=== PATIENT | female | born 1975 | race American Indian/Alaskan Native ===

== ENCOUNTER 2016-09-27 14:38 | Emergency (ER) | payer OTHER ==
[2016-09-27 14:52] VITALS: TEMP 98
[2016-09-27] MEDS ORDERED: Oxycodone/Acetaminophen 5/325 mg Tab PO STA (15:43)
--- NOTE | 2016-09-27 16:48 | RAD ---
PROCEDURE: Right Ankle Radiographs. HISTORY: ankle pain s/p fall COMPARISON: None FINDINGS: BONES: Normal. No fracture. JOINTS: Normal. No osteoarthritis. Ankle mortise maintained. Talar dome intact SOFT TISSUES: Normal. OTHER FINDINGS: None. IMPRESSION: Normal right ankle radiographs.
--- NOTE | 2016-09-27 16:49 | RAD ---
PROCEDURE: Radiographs of the Lumbar Spine. HISTORY: back pain/fall COMPARISON: No prior. FINDINGS: BONES: Normal alignment. No listhesis. No fracture. DISC SPACES: Unremarkable. OTHER FINDINGS: None. IMPRESSION: Unremarkable radiographs of the lumbar spine.
[2016-09-27 17:01] VITALS: BP 129/79; PULSE 62; RESP 16
--- NOTE | 2016-09-27 17:58 | ED PDOC ---
Arrival/HPI - General Chief Complaint: Trauma Time Seen by Provider: 09/27/16 15:38 Historian: Patient - History of Present Illness Narrative History of Present Illness (Text): 09/27/16 18:16 41-year-old female presents today with back pain and right ankle pain s/p slip and fall. pt states while shopping she slipped on water and fell on buttock and left side. pt denies hitting her head. no LOC. no headaches, dizziness or weakness. no cp or sob. no vomiting/diarrhea. c/o low back pain and right ankle pain after twisting ankle. no cp or sob. no mediations taken for pain. incident occurred prior to arrival. Time/Duration: Prior to Arrival Past Medical History - Provider Review Nursing Documentation Reviewed: Yes - Travel History Have you recently traveled outside [place] w/in the past 3 mons?: No - Infectious Disease Hx of Infectious Diseases: None - Reproductive Menopause: No - Cardiac Hx Hypertension: Yes - Pulmonary Hx Asthma: Yes - Musculoskeletal/Rheumatological Hx Back Pain: Yes (slipped disc) - Psychiatric Hx Substance Use: No - Anesthesia Hx Anesthesia: No Family/Social History - Physician Review Nursing Documentation Reviewed: Yes Family/Social History: Unknown Family HX Smoking Status: Unknown If Ever Smoked Hx Alcohol Use: No Hx Substance Use: No Allergies/Home Meds Allergies/Adverse Reactions: Allergies No Known Allergies Allergy (Verified 09/27/16 15:09) Home Medications: Home Meds Medication Instructions Recorded Confirmed Lisinopril [Prinivil] 10 mg PO DAILY 09/27/16 09/27/16 Review of Systems - Review of Systems Constitutional: absent: Fatigue, Fevers Respiratory: absent: SOB, Cough Cardiovascular: absent: Chest Pain, Palpitations Gastrointestinal: absent: Abdominal Pain, Nausea, Vomiting Genitourinary Female: absent: Dysuria Musculoskeletal: Arthralgias (right ankle pain), Back Pain. absent: Neck Pain Skin: absent: Rash, Pruritis Physical Exam Vital Signs Reviewed: Yes Vital Signs Temp Pulse Resp BP Pulse Ox 09/27/16 17:00 62 16 129/79 100 09/27/16 14:51 98.0 F 66 18 159/103 H 99 Temperature: Afebrile Blood Pressure: Hypertensive Pulse: Regular Respiratory Rate: Normal Appearance: Positive for: Well-Appearing, Non-Toxic, Comfortable Pain Distress: None Mental Status: Positive for: Alert and Oriented X 3 - Systems Exam Head: Present: Atraumatic Mouth: Present: Moist Mucous Membranes Neck: Present: Normal Range of Motion Respiratory/Chest: Present: Clear to Auscultation, Good Air Exchange. No: Respiratory Distress, Accessory Muscle Use Cardiovascular: Present: Regular Rate and Rhythm, Normal S1, S2. No: Murmurs Abdomen: No: Tenderness, Distention, Rebound, Guarding Back: Present: Normal Inspection, Paraspinal Tenderness. No: Midline Tenderness Upper Extremity: Present: Normal Inspection, Normal ROM. No: Tenderness, Swelling Lower Extremity: Present: Normal ROM, Tenderness (right ankle; + ttp over lateral malleolus; no edema, no erythema; no ecchymosis; sensation and distal pulses intact; no knee tenderness. pelvis stable; full rom of ankle and knee. ) , Neurovascularly Intact, Capillary Refill < 2 s. No: Swelling, Erythema, Deformity, Temperature Abnormalties Skin: Present: Warm, Dry, Normal Color. No: Rashes Psychiatric: Present: Alert, Oriented x 3 Medical Decision Making ED Course and Treatment: 09/27/16 19:48 Patient nontoxic well-appearing in no distress with stable vital signs. Toradol, Flexeril, Percocet. Right ankle x-ray: No fracture as read by the radiologist X-ray of the lumbar spine: No fractures read by the radiologist Patient reassessment: Feeling better with medications ambulating with a steady gait. Muscle strength 5 out of 5 bilaterally. Aircast to right ankle and crutches given I advised to followup with the orthopedist within the next 2 days.Advised follow -up PMD Return if symptoms worsen persist or new symptoms develop Patient verbalizes understanding of discharge instructions and need for immediate followup. Impression: Back pain, ankle pain Motrin every 6 hours as needed for pain Flexeril one tablet every 8 hours as needed for muscle spasms: May cause drowsiness Followup with the orthopedist within the next 2 days Followup with primary care physician within the next 2 days Return if symptoms worsen persist or if new symptoms develop - RAD Interpretation Radiology Orders: 09/27/16 15:38 ANKLE RIGHT 3 VIEWS ROUTINE [RAD] Stat LS SPINE WITH OBL > 18 YRS OLD [RAD] Stat - Medication Orders Current Medication Orders: Discontinued Medications Cyclobenzaprine HCl (Flexeril) 10 mg PO STAT STA Stop: 09/27/16 15:44 Last Admin: 09/27/16 16:40 Dose: 10 mg Ketorolac Tromethamine (Toradol) 60 mg IM STAT STA Stop: 09/27/16 15:44 Last Admin: 09/27/16 16:41 Dose: Not Given Non-Admin Reason: Patient Refused Oxycodone/Acetaminophen (Percocet 5/325 Mg Tab) 1 tab PO STAT STA Stop: 09/27/16 15:44 Last Admin: 09/27/16 16:40 Dose: 1 tab Disposition/Present on Arrival - Present on Arrival Any Indicators Present on Arrival: No History of DVT/PE: No History of Uncontrolled Diabetes: No Urinary Catheter: No History of Decub. Ulcer: No History Surgical Site Infection Following: None - Disposition Have Diagnosis and Disposition been Completed?: Yes Diagnosis: Ankle pain, Back pain Disposition: HOME/ ROUTINE Disposition Time: 17:55 Patient Plan: Discharge Condition: GOOD Discharge Instructions (ExitCare): Back Pain (ED), Arthralgia (ED) Additional Instructions: Motrin every 6 hours as needed for pain Flexeril one tablet every 8 hours as needed for muscle spasms: May cause drowsiness rest, ice, elevation Followup with the orthopedist within the next 2 days Followup with primary care physician within the next 2 days Return if symptoms worsen persist or if new symptoms develop Prescriptions: Cyclobenzaprine [Cyclobenzaprine HCl] 10 mg PO Q8 #10 tab Ibuprofen [Motrin] 600 mg PO Q6H PRN #20 tab PRN Reason: pain/fever reduction Referrals: Munira Magallon MD [Primary Care Provider] - Follow up with primary Manuel Burr MD [Staff Provider] - Follow up with primary Forms: [employer] ([place]ian), WORK NOTE
[2016-09-27 18:22] VITALS: O2SAT 98
== END 2016-09-27 18:22 | disposition home or self-care (01) ==
LOC: ED 14:38
DX: M25.571 Pain in right ankle and joints of right foot (principal); M54.9 Dorsalgia, unspecified

== ENCOUNTER 2017-04-28 13:17 | Emergency (ER) | payer OTHER ==
--- NOTE | 2017-04-28 14:14 | ED PDOC ---
Arrival/HPI - General Chief Complaint: Dental Pain Time Seen by Provider: 04/28/17 14:13 Historian: Patient - History of Present Illness Narrative History of Present Illness (Text): 04/28/17 14:14 This 41 yo female with pmh htn, dental caries, presents to this ED c/o right tooth/gum pain x 2 days. Patient stated she was not able to see her dentist due to severe now weather today. Patient stated she has an appointment to see her dentist tomorrow. Patient denies fever, sob, cp, abdominal pain, JEREZ, facial swelling, facial pain, recent travel or sick contact. Time/Duration: Other (2 days) Quality: Aching Context: Home Past Medical History - Provider Review Nursing Documentation Reviewed: Yes - Infectious Disease Hx of Infectious Diseases: None - Cardiac Hx Cardiac Disorders: Yes Hx Hypertension: Yes - Pulmonary Hx Respiratory Disorders: Yes Hx Asthma: Yes - Neurological Hx Neurological Disorder: No - HEENT Hx HEENT Disorder: No - Renal Hx Renal Disorder: No - Endocrine/Metabolic Hx Endocrine Disorders: No - Hematological/Oncological Hx Blood Disorders: No - Integumentary Hx Dermatological Disorder: No - Musculoskeletal/Rheumatological Hx Musculoskeletal Disorders: Yes Hx Back Pain: Yes (slipped disc) Other/Comment: R ANKLE INJURY - Gastrointestinal Hx Gastrointestinal Disorders: No - Genitourinary/Gynecological Hx Genitourinary Disorders: No - Psychiatric Hx Psychophysiologic Disorder: No Hx Substance Use: No - Surgical History Other/Comment: UTERINE SURGERY - Anesthesia Hx Anesthesia: No Family/Social History - Physician Review Nursing Documentation Reviewed: Yes Family/Social History: Other (noncontributory) Smoking Status: Never Smoked Hx Alcohol Use: No Hx Substance Use: No Allergies/Home Meds Allergies/Adverse Reactions: Allergies No Known Allergies Allergy (Verified 04/28/17 13:44) Home Medications: Home Meds Medication Instructions Recorded Confirmed Lisinopril [Prinivil] 20 mg PO DAILY 09/27/16 04/28/17 Review of Systems - Review of Systems Constitutional: Normal. absent: Fatigue, Weight Change, Fevers Eyes: Normal ENT: Other (tooth ache). absent: Sore Throat Respiratory: Normal, Cough. absent: SOB, Sputum, Wheezing Cardiovascular: Normal. absent: Chest Pain, Palpitations Gastrointestinal: Normal. absent: Abdominal Pain, Diarrhea, Nausea, Vomiting Genitourinary Female: Normal. absent: Dysuria, Frequency, Hematuria Musculoskeletal: Normal. absent: Back Pain, Neck Pain, Myalgias Skin: Normal. absent: Rash Neurological: Normal. absent: Headache, Dizziness, Focal Weakness, Gait Changes , Speech Changes, Facial Droop, Disequilibrium, Seizure Endocrine: Normal Hemo/Lymphatic: Normal Psychiatric: Normal Physical Exam Vital Signs Temp Pulse Resp BP Pulse Ox 04/28/17 13:45 99.0 F 100 H 16 169/116 H 99 Temperature: Afebrile Blood Pressure: Hypertensive Pulse: Regular Respiratory Rate: Normal Appearance: Positive for: Well-Appearing, Non-Toxic, Comfortable Pain Distress: None Mental Status: Positive for: Alert and Oriented X 3 - Systems Exam Head: Present: Atraumatic, Normocephalic Pupils: Present: PERRL Extroacular Muscles: Present: EOMI Conjunctiva: Present: Normal Ears: Present: Normal, NORMAL TM, Normal Canal. No: Erythema, TM Bulging Mouth: Present: Moist Mucous Membranes, Normal Lips, Normal Tounge, Other ((+) tooth 28 is missing, with remnant tooth root exposed with caries. no significant gum swelling). No: Drooling Neck: Present: Normal Range of Motion. No: Meningeal Signs Respiratory/Chest: Present: Clear to Auscultation, Good Air Exchange, Other ( Lungs CTA b/l , no rhonchi or wheezing). No: Respiratory Distress, Accessory Muscle Use, Wheezes, Retracting, Rhonchi Cardiovascular: Present: Regular Rate and Rhythm, Normal S1, S2. No: Murmurs Abdomen: No: Tenderness Upper Extremity: Present: Normal Inspection, Normal ROM Lower Extremity: Present: Normal Inspection, Normal ROM Neurological: Present: GCS=15, CN II-XII Intact, Speech Normal Skin: Present: Warm, Dry, Normal Color. No: Rashes Psychiatric: Present: Alert, Oriented x 3, Normal Insight, Normal Concentration Medical Decision Making ED Course and Treatment: 04/28/17 14:37 Re-evaluation. Patient feels better. Discussed results and plan with patient who expresses understanding. All questions answered and there is agreement with the plan to discharge home with instructions. Patient stable for discharge. Return if symptoms persist or worsen. Patient was recommended to f/u dentist tomorrow and to return to emergency if symptoms worsen. Re-evaluation Time: 14:38 Reassessment Condition: Re-examined, Improved - Medication Orders Current Medication Orders: Clindamycin HCl (Cleocin) 300 mg PO STAT STA PRN Reason: Protocol Stop: 04/28/17 14:20 Disposition/Present on Arrival - Present on Arrival Any Indicators Present on Arrival: No History of DVT/PE: No History of Uncontrolled Diabetes: No Urinary Catheter: No History of Decub. Ulcer: No History Surgical Site Infection Following: None - Disposition Have Diagnosis and Disposition been Completed?: Yes Diagnosis: Toothache Disposition: HOME/ ROUTINE Disposition Time: 14:38 Patient Plan: Discharge Patient Problems: Current Active Problems Problem Status Onset Toothache Acute Condition: GOOD Discharge Instructions (ExitCare): Dental Pain (DC) Additional Instructions: Make sure to take medication for blood pressure as soon as you get home. Take medication as instructed with food. Do not drive or operate machinery when youtake cough medication for at least 12 hours. return to emergency if symptoms worsen. Prescriptions: Chlorhexidine 0.12% [Peridex] 15 ml PO BID #1 bottle Clindamycin [Cleocin] 300 mg PO TID #21 cap Naproxen 500 mg PO BID PRN #14 tablet PRN Reason: Pain, Severe (8-10) Promethazine/Codeine [Codeine/Promethazine 10 MG/5 Ml-6.25 MG/5 Ml] 5 ml PO Q4H PRN #120 ml PRN Reason: Cough Referrals: Orville Magallon MD [Primary Care Provider] - Follow up with primary Forms: [employer] ([place]i), WORK NOTE
[2017-04-28] MEDS ORDERED: Naproxen 550 mg Tab PO STA (14:19)
[2017-04-28 14:57] VITALS: BP 150/96; PULSE 97; RESP 17; TEMP 98.1; O2SAT 98
== END 2017-04-28 15:11 | disposition home or self-care (01) ==
LOC: ED 13:17
DX: K08.89 Other specified disorders of teeth and supporting structures (principal); I10 Essential (primary) hypertension

== ENCOUNTER 2017-10-29 11:51 | Emergency (ER) | payer OTHER ==
[2017-10-29 12:13] VITALS: O2SAT 99
--- NOTE | 2017-10-29 12:25 | ED PDOC ---
Arrival/HPI - Critical Care Critical Care Minutes: 30 minutes <Fabiano Faustin - Last Filed: 10/29/17 14:32> - General Historian: Patient - History of Present Illness Time/Duration: 4-6 hours Symptom Onset: Sudden Quality: Other (numbness) Activities at Onset: Rest Context: Sitting <Elgin Nuñez - Last Filed: 10/29/17 14:53> - General Chief Complaint: Weakness/Neurological Deficit Time Seen by Provider: 10/29/17 12:04 - History of Present Illness Narrative History of Present Illness (Text): 10/29/17 12:52 CC: R sided facial numbness HPI: Ms. Jacob is a 42 year old female with PMHx of Asthma, Arthritis, HTN, and dental caries who presents with right sided facial numbness that began around 930 this morning. Patient reports eye twitching and numbness from the eye down to the jaw. Patient also endorses elevated blood pressure 179/120, which she took at [employer] where she works. Patient then saw Dr. Navarrete who evaluated her symptoms and prompted her to be evaluated in the ED. Patient recently switched from Lisinopril to Carvedilol 25 mg BID. Patient has painful RUE at times which patient reports is due to a fall about a year ago, for which she sees physical therapy. Patient also reports a recently completed course of antibiotics last week for a UTI. Patient denies chest pain, shortness of breath, nausea, changes in urinary or bowel habits, recent travel, sick contacts, and exposure to ticks. (Elgin Nuñez) Past Medical History - Provider Review Nursing Documentation Reviewed: Yes - Travel History Have you recently traveled outside [place] w/in the past 3 mons?: No - Infectious Disease Hx of Infectious Diseases: None - Cardiac Hx Cardiac Disorders: Yes Hx Hypertension: Yes - Pulmonary Hx Respiratory Disorders: Yes Hx Asthma: Yes - Neurological Hx Neurological Disorder: No - HEENT Hx HEENT Disorder: No - Renal Hx Renal Disorder: No - Endocrine/Metabolic Hx Endocrine Disorders: No - Hematological/Oncological Hx Blood Disorders: No - Integumentary Hx Dermatological Disorder: No - Musculoskeletal/Rheumatological Hx Musculoskeletal Disorders: Yes Hx Back Pain: Yes (slipped disc) Other/Comment: R ANKLE INJURY - Gastrointestinal Hx Gastrointestinal Disorders: No - Genitourinary/Gynecological Hx Genitourinary Disorders: No - Psychiatric Hx Psychophysiologic Disorder: No Hx Substance Use: No - Surgical History Other/Comment: UTERINE SURGERY - Anesthesia Hx Anesthesia: No <Elgin Nuñez - Last Filed: 10/29/17 14:53> Family/Social History - Physician Review Nursing Documentation Reviewed: Yes Family/Social History: Other (kidney disease in grandparent) Smoking Status: Never Smoked Hx Alcohol Use: No Hx Substance Use: No <Elgin Nuñez - Last Filed: 10/29/17 14:53> Allergies/Home Meds <Fabiano Faustin - Last Filed: 10/29/17 14:32> <Elgin Nuñez - Last Filed: 10/29/17 14:53> Allergies/Adverse Reactions: Allergies No Known Allergies Allergy (Verified 04/28/17 13:44) Home Medications: Home Meds Medication Instructions Recorded Confirmed Lisinopril [Prinivil] 20 mg PO DAILY 09/27/16 04/28/17 Review of Systems - Review of Systems Constitutional: Normal Eyes: Normal ENT: Normal Respiratory: Normal Cardiovascular: Normal Gastrointestinal: Normal Genitourinary Female: Normal Musculoskeletal: Normal Skin: Normal Neurological: Normal. absent: Headache, Dizziness Endocrine: Normal Psychiatric: Anxiety <Elgin Nuñez - Last Filed: 10/29/17 14:53> Physical Exam Vital Signs Reviewed: Yes Temperature: Afebrile Blood Pressure: Hypertensive Pulse: Regular Respiratory Rate: Normal Appearance: Positive for: Well-Appearing, Non-Toxic, Comfortable Pain Distress: Mild Mental Status: Positive for: Alert and Oriented X 3 - Systems Exam Head: Present: Atraumatic, Normocephalic Pupils: Present: PERRL Extroacular Muscles: Present: EOMI Conjunctiva: Present: Normal Mouth: Present: Moist Mucous Membranes. No: Normal Teeth (poor dentition) Neck: Present: Normal Range of Motion Respiratory/Chest: Present: Clear to Auscultation. No: Respiratory Distress, Accessory Muscle Use Cardiovascular: Present: Regular Rate and Rhythm, Normal S1, S2. No: Murmurs Abdomen: Present: Normal Bowel Sounds. No: Tenderness, Distention, Peritoneal Signs, Rebound, Guarding Back: Present: Paraspinal Tenderness (hx of arthritis) Upper Extremity: Present: Normal Inspection, Neurovascularly Intact, Capillary Refill < 2s, Norm 2-Pt Discrimination. No: Temperature Abnormalties Lower Extremity: Present: Normal Inspection. No: Edema, CALF TENDERNESS, Deformity Neurological: Present: GCS=15, CN II-XII Intact, Speech Normal, Motor Func Grossly Intact, Normal Sensory Function, Norm Deep Tendon Reflexes, Normal 2Pt Descrimination Skin: Present: Warm, Dry, Normal Color. No: Rashes Psychiatric: Present: Alert, Oriented x 3, Normal Insight, Normal Concentration <Elgin Nuñez - Last Filed: 10/29/17 14:53> Vital Signs Temp Pulse Resp BP Pulse Ox 10/29/17 13:13 73 166/94 H 10/29/17 12:04 98.4 F 84 18 186/105 H 99 Medical Decision Making <Fabiano Faustin - Last Filed: 10/29/17 14:32> - EKG Interpretation Interpreted by ED Physician: Yes Type: 12 lead EKG <Tamela Nuñezam - Last Filed: 10/29/17 14:53> ED Course and Treatment: 10/29/17 12:49 code STROKE on arrival. Cased discussed with Dr. Ruiz who recommended CT head and if negative, give aspirin and admit for TIA. In agreement with resident note, which includes further HPI details. Patient was seen and evaluated with resident, came up with plan and treatment together. (Fabiano Faustin) 10/29/17 12:25 Impression: 42 F with PMHx HTN who presents with R sided facial and RUE numbness that began this morning in setting of elevated blood pressure. Code Stroke called. CVA vs TIA Plan: CT head without contrast Labs, including a1c and lipid panel CXR EKG, Trop Swallow eval Coags, Type and Screen 20 mg Labetalol given for HTN urgency. 10/29/17 13:09 PROCEDURE: CT HEAD WITHOUT CONTRAST. HISTORY: right facial and arm numbness COMPARISON: None available. TECHNIQUE: Axial computed tomography images were obtained through the head/brain without intravenous contrast. Radiation dose: Total exam DLP = 894 mGy-cm. This CT exam was performed using one or more of the following dose reduction techniques: Automated exposure control, adjustment of the mA and/or kV according to patient size, and/or use of iterative reconstruction technique. FINDINGS: HEMORRHAGE: No intracranial hemorrhage. BRAIN: No mass effect or edema. No atrophy or chronic microvascular ischemic changes. VENTRICLES: Unremarkable. No hydrocephalus. CALVARIUM: Unremarkable. PARANASAL SINUSES: Unremarkable as visualized. No significant inflammatory changes. MASTOID AIR CELLS: Unremarkable as visualized. No inflammatory changes. OTHER FINDINGS: None. IMPRESSION: No acute intracranial findings 10/29/17 13:45 ASA 325 mg given. BP improved. Patient denies any current numbness, tingling or any other symptom. 10/29/17 14:15 Patient wishes to sign out AMA. Risks were discussed at length with patient, including recurrence of symptoms, development of neural focal deficits, and lack of continuous and proper evaluation and management. Patient understood risks and is leaving AMA. (Elgin Nuñez) - Lab Interpretations Lab Results: 10/29/17 12:15 10/29/17 12:15 Lab Results 10/29/17 12:33: POC Glucose (mg/dL) 111 H 10/29/17 12:15: Sodium 139, Potassium 4.0, Chloride 105, Carbon Dioxide 25, Anion Gap 13, BUN 11, Creatinine 0.8, Est GFR ( Amer) > 60, Est GFR (Non- Af Amer) > 60, Random Glucose 109, Calcium 9.5, Total Bilirubin 0.9, AST 20, ALT 25, Alkaline Phosphatase 50, Troponin I < 0.01, Total Protein 7.8, Albumin 4.4, Globulin 3.4, Albumin/Globulin Ratio 1.3, Triglycerides 50, Cholesterol 199, LDL Cholesterol Direct 92, HDL Cholesterol 80 H 10/29/17 12:15: PT 11.1, INR 0.97, APTT 27.1 10/29/17 12:15: WBC 5.8, RBC 4.60, Hgb 12.0, Hct 36.3, MCV 78.9 L, MCH 26.1, MCHC 33.1, RDW 14.4, Plt Count 238, MPV 11.1 H, Gran % 62.1, Lymph % (Auto) 32.1, [place] % (Auto) 4.8, Eos % (Auto) 0.7 L, Baso % (Auto) 0.3, Gran # 3.60, Lymph # (Auto) 1.9, P[place] # (Auto) 0.3, Eos # (Auto) 0.0, Baso # (Auto) 0.02 - RAD Interpretation Radiology Orders: 10/29/17 12:13 HEAD W/O (CODE STROKE) [CT] Stat 10/29/17 12:14 CHEST PORTABLE [RAD] Stat - EKG Interpretation EKG Interpretation (Text): 10/29/17 12:32 NSR @ [address] or T wave changes (Elgin Nuñez) - Medication Orders Current Medication Orders: Discontinued Medications Aspirin (Aspirin) 325 mg PO STAT STA Stop: 10/29/17 14:18 Labetalol HCl (Trandate) 20 mg IV STAT STA Stop: 10/29/17 12:39 Last Admin: 10/29/17 13:13 Dose: 20 mg eMAR Start Stop Document 10/29/17 13:13 [facility] (Rec[facility] 10/29/17 13:[id number] Intravenous Solution Start Date 10/29/17 Start Time 13:16 End Date 10/29/17 End time 13:18 Total Infusion Time 2 MAR Pulse and Blood Pressure Document 10/29/17 13:13 [facility] (Rec: 10/29/17 13:16 [id number]) Pulse Pulse Rate (60-90) 73 Blood Pressure Blood Pressure (100/60-150/90) 166/94 NIHSS Scale ([place]) Time Performed: 12:15 - How Severe is the Stoke Baseline Level of Consciousness: 0=Alert LOC to Questions: 0=Both comments correct LOC to commands: 0=Obeys both correctly Best Gaze: 0=Normal Visual: 0=No visual loss Facial: 0=Normal Motor Arm - Left: 0=No drift Motor Arm - Right: 0=No drift Motor Leg - Left: 0=No drift Motor Leg - Right: 0=No drift Limb Ataxia: 0=Absent Sensory: 0=Normal Best Language: 0=No aphasia Dysarthia: 0=Normal articulation Extinction & Inattention (Neglect): 0=Normal, no object Score: 0 Risk Level: No Stroke Risk <Fabiano Faustin - Last Filed: 10/29/17 14:32> Disposition/Present on Arrival <Fabiano Faustin - Last Filed: 10/29/17 14:32> - Present on Arrival Any Indicators Present on Arrival: No History of DVT/PE: No History of Uncontrolled Diabetes: No Urinary Catheter: No History of Decub. Ulcer: No History Surgical Site Infection Following: None - Disposition Have Diagnosis and Disposition been Completed?: Yes Disposition Time: 14:00 Patient Plan: Discharge <Elgin Nuñez - Last Filed: 10/29/17 14:53> - Disposition Diagnosis: TIA (transient ischemic attack), Hypertensive urgency Disposition: AGAINST MEDICAL ADVICE Patient Problems: Current Active Problems Problem Status Onset Hypertensive urgency Acute TIA (transient ischemic attack) Acute Condition: FAIR Discharge Instructions (ExitCare): Transient Ischemic Attack, High Blood Pressure (DC), High Blood Pressure Emergencies Additional Instructions: RAFAEL JACOB, thank you for letting us take care of you today. Your provider was Fabiano Faustin DO and you were treated for Hypertension, TIA. The emergency medical care you received today was directed at your acute symptoms. If you were prescribed any medication, please fill it and take as directed. It may take several days for your symptoms to resolve. Return to the Emergency De partment if your symptoms worsen, do not improve, or if you have any other problems. Please contact your doctor or call one of the physicians/clinics you have been referred to that are listed on the Patient Visit Information form that is included in your discharge packet. Bring any paperwork you were given at discharge with you along with any medications you are taking to your follow up visit. Our treatment cannot replace ongoing medical care by a primary care provider outside of the emergency department. Thank you for allowing the [facility] team to be part of your care today. If you had an X-Ray or CT scan: A Radiologist will review the ED reading if any change in treatment is needed we will contact you. If you had a blood, urine, or wound culture: It will take several days for the results, if any change in treatment is needed we will contact you. If you had an STI test: It will take 48 hours for the results. Please call after 1 week if you have not heard back. Referrals: Non [facility] Provider, [Non-Staff] - Follow up with primary Mil Ruiz MD [Staff Provider] - Follow up with primary Forms: [employer] (Austrian), WORK NOTE
[2017-10-29] MEDS ORDERED: Labetalol 5 mg/ml Inj 20ML IV STA (12:38)
--- NOTE | 2017-10-29 12:52 | CT ---
Date of service: 10/29/2017 PROCEDURE: CT HEAD WITHOUT CONTRAST. HISTORY: right facial and arm numbness COMPARISON: None available. TECHNIQUE: Axial computed tomography images were obtained through the head/brain without intravenous contrast. Radiation dose: Total exam DLP = 894 mGy-cm. This CT exam was performed using one or more of the following dose reduction techniques: Automated exposure control, adjustment of the mA and/or kV according to patient size, and/or use of iterative reconstruction technique. FINDINGS: HEMORRHAGE: No intracranial hemorrhage. BRAIN: No mass effect or edema. No atrophy or chronic microvascular ischemic changes. VENTRICLES: Unremarkable. No hydrocephalus. CALVARIUM: Unremarkable. PARANASAL SINUSES: Unremarkable as visualized. No significant inflammatory changes. MASTOID AIR CELLS: Unremarkable as visualized. No inflammatory changes. OTHER FINDINGS: None. IMPRESSION: No acute intracranial findings
[2017-10-29 12:59] LABS: BASO # 0.02 K/mm3 (0.0-2.0); BASO % 0.3 % (0.0-3.0); EOS % 0.7 % (1.5-5.0); GRAN # 3.6 (1.4-6.5); GRAN % 62.1 % (50.0-68.0); LYMPH # 1.9 (1.2-3.4); LYMPH % 32.1 % (22.0-35.0); MEAN CELL VOLUME 78.9 fl (80.0-105.0); MEAN CORPUSCULAR HEMOGLOBIN 26.1 pg (25.0-35.0); MEAN CORPUSCULAR HGB CONC 33.1 g/dl (31.0-37.0); MEAN PLATELET VOLUME 11.1 fl (7.0-11.0); MONO # 0.3 (0.1-0.6); MONO % 4.8 % (1.0-6.0); RBC 4.6 10^6/uL (3.5-6.1); RED CELL DISTRIBUTION WIDTH 14.4 % (11.5-14.5); WHITE BLOOD COUNT 5.8 10^3/ul (4.5-11.0)
[2017-10-29 13:05] LABS: ALB/GLOB RATIO 1.3 (1.1-1.8); ALBUMIN 4.4 g/dL (3.0-4.8); ALT/SGPT 25 U/L (7-56); AST/SGOT 20 U/L (14-36); BLOOD UREA NITROGEN 11 mg/dL (7-21); CALCIUM 9.5 mg/dL (8.4-10.5); GFR NON-AFRICAN AMERICAN > 60; HDL CHOLESTEROL 80 mg/dL (29-60)
[2017-10-29 13:06] LABS: INR 0.97; PARTIAL THROMBOPLASTIN TIME 27.1 Seconds (25.1-36.5); PROTHROMBIN TIME 11.1 SECONDS (9.4-12.5)
[2017-10-29 13:15] LABS: TROPONIN I < 0.01 ng/mL
[2017-10-29 13:16] LABS: LDL CHOLESTEROL 92 mg/dL (0-129)
--- NOTE | 2017-10-29 13:20 | RAD ---
HISTORY: Code Stroke COMPARISON: None available. TECHNIQUE: Chest, one view. FINDINGS: Examination limited by habitus. LUNGS: No focal consolidation. Scattered probable calcified granulomas, right hilar region. Please note that chest x-ray has limited sensitivity for the detection of pulmonary masses. PLEURA: No significant pleural effusion identified. No definite pneumothorax . CARDIOVASCULAR: Heart size appears top normal. OSSEOUS STRUCTURES: Degenerative changes. VISUALIZED UPPER ABDOMEN: Unremarkable. OTHER FINDINGS: None. IMPRESSION: No acute pathology identified. Findings as above.
[2017-10-29 14:41] VITALS: BP 156/90; PULSE 76; RESP 16
[2017-10-29 14:44] VITALS: TEMP 98.3
--- NOTE | 2017-10-29 21:01 | CARD ---
APPROVED REPORT Date of service: 10/29/2017 EKG Measurement Heart [id number] [id number] <Conclusion> Normal sinus rhythm Normal ECG
== END 2017-10-29 14:44 | disposition left against medical advice (07) ==
LOC: ED 11:51
DX: G45.9 Transient cerebral ischemic attack, unspecified (principal); I16.0 Hypertensive urgency; I10 Essential (primary) hypertension; M19.90 Unspecified osteoarthritis, unspecified site

== ENCOUNTER 2018-01-09 09:54 | Emergency (ER) | payer OTHER ==
[2018-01-09 10:00] VITALS: BMI 29.2
[2018-01-09 10:04] VITALS: RESP 18; TEMP 98.5
--- NOTE | 2018-01-09 10:09 | ED PDOC ---
Arrival/HPI - General Historian: Patient - History of Present Illness Narrative History of Present Illness (Text): 01/09/18 10:05 42yo female with past medical history of Asthma, hypertension, Arthritis who present with complaint of right sided neck pain radiating to her shoulder since earlier this morning. She reports chronic history of lower back pain. States she carried heavy laundry bags yesterday and not sure if it caused the pain. states pain started on her back where she usually get the pain and then it radiated to her neck/shoulder area. States her pain is currently mild, 5/10. She took Tinazidine earlier. she denies trauma, nuchal rdigity, fever, rash, nausea, vomiting, dizziness, headache, visual changes, focal weakness, any other complaint. <Maty Lozada A - Last Filed: 01/09/18 10:39> Past Medical History - Provider Review Nursing Documentation Reviewed: Yes - Infectious Disease Hx of Infectious Diseases: None - Cardiac Hx Cardiac Disorders: Yes Hx Hypertension: Yes - Pulmonary Hx Respiratory Disorders: Yes Hx Asthma: Yes - Neurological Hx Neurological Disorder: No - HEENT Hx HEENT Disorder: No - Renal Hx Renal Disorder: No - Endocrine/Metabolic Hx Endocrine Disorders: No - Hematological/Oncological Hx Blood Disorders: No - Integumentary Hx Dermatological Disorder: No - Musculoskeletal/Rheumatological Hx Musculoskeletal Disorders: Yes Hx Back Pain: Yes (slipped disc) Other/Comment: R ANKLE INJURY - Gastrointestinal Hx Gastrointestinal Disorders: No - Genitourinary/Gynecological Hx Genitourinary Disorders: No - Psychiatric Hx Psychophysiologic Disorder: No Hx Substance Use: No - Surgical History Other/Comment: UTERINE SURGERY - Anesthesia Hx Anesthesia: No <Maty Lozada A - Last Filed: 01/09/18 10:39> Family/Social History - Physician Review Nursing Documentation Reviewed: Yes Family/Social History: Unknown Family HX Smoking Status: Never Smoked Hx Alcohol Use: No Hx Substance Use: No <Maty Lozada A - Last Filed: 01/09/18 10:39> Allergies/Home Meds <KierraHappiness A - Last Filed: 01/09/18 10:39> <Mannie Ty - Last Filed: 01/09/18 11:32> Allergies/Adverse Reactions: Allergies No Known Allergies Allergy (Verified 04/28/17 13:44) Home Medications: Home Meds Medication Instructions Recorded Confirmed Lisinopril [Prinivil] 20 mg PO DAILY 09/27/16 01/09/18 tiZANidine [Zanaflex] 1 tab PO Q6H PRN 01/09/18 01/09/18 Review of Systems - Physician Review All systems were reviewed & negative as marked: Yes - Review of Systems Constitutional: Normal Eyes: Normal ENT: Normal Respiratory: Normal Cardiovascular: Normal Gastrointestinal: Normal Genitourinary Female: Normal Musculoskeletal: Arthralgias (Right shoulder), Neck Pain Skin: Normal Neurological: Normal Endocrine: Normal Hemo/Lymphatic: Normal Psychiatric: Normal <Diru,Happiness A - Last Filed: 01/09/18 10:39> Physical Exam Vital Signs Reviewed: Yes Vital Signs Temp Pulse Resp BP Pulse Ox 01/09/18 10:03 98.5 F 99 H 18 157/101 H 98 Temperature: Afebrile Blood Pressure: Hypertensive Pulse: Regular Respiratory Rate: Normal Appearance: Positive for: Well-Appearing, Non-Toxic, Comfortable Pain Distress: None Mental Status: Positive for: Alert and Oriented X 3 - Systems Exam Head: Present: Atraumatic, Normocephalic Pupils: Present: PERRL Extroacular Muscles: Present: EOMI Conjunctiva: Present: Normal Mouth: Present: Moist Mucous Membranes Neck: Present: Normal Range of Motion, Paraspinal Tenderness (Mild right sided paracervical tenderness). No: Meningeal Signs, MIDLINE TENDERNESS Respiratory/Chest: Present: Clear to Auscultation, Good Air Exchange. No: Respiratory Distress, Accessory Muscle Use Cardiovascular: Present: Regular Rate and Rhythm, Normal S1, S2. No: Murmurs Abdomen: No: Tenderness, Distention, Peritoneal Signs Back: Present: Normal Inspection Upper Extremity: Present: Normal Inspection. No: Cyanosis, Edema Lower Extremity: Present: Normal Inspection. No: Edema Neurological: Present: GCS=15, CN II-XII Intact, Speech Normal Skin: Present: Warm, Dry, Normal Color. No: Rashes Psychiatric: Present: Alert, Oriented x 3, Normal Insight, Normal Concentration <Diru,Happiness A - Last Filed: 01/09/18 10:39> Vital Signs Temp Pulse Resp BP Pulse Ox 01/09/18 11:12 90 18 143/93 H 99 01/09/18 10:03 98.5 F 99 H 18 157/101 H 98 <Mannie Ty - Last Filed: 01/09/18 11:32> Medical Decision Making ED Course and Treatment: 01/09/18 10:39 PT present to emergency department or stated history. she was not in any distress. Her BP was elevated on triage. She noted that she did not take her antihypertensive today. She took it in emergency department . She denies headache, focal weakness, slurred speech, paresthesia,. she had no meningeal signs. Her neck was supple. She had focal right sided paraspinous tenderness. Her pain likely MS in origin. Cervical spine xray Right shoulder xray EKG Ibuprofen 600mg EKG NSR @95bpm On reevaluation she reported improvement of her pain with medication. Her BP also improved. Right shoulder xray - No acute finding Cervical spine xray - No acute finding result was DW the pt and she will be DC home with a rx of Naprosyn Referred to her PMD/ortho. Advised to apply warm compress/shower to area. - RAD Interpretation Radiology Orders: 01/09/18 10:04 CERVICAL SPINE >18YR W/OBLIQUE [RAD] Stat <Diru,Happiness A - Last Filed: 01/09/18 10:39> - RAD Interpretation Radiology Orders: 01/09/18 10:04 CERVICAL SPINE >18YR W/OBLIQUE [RAD] Stat 01/09/18 10:10 SHOULDER RIGHT [RAD] Stat - Medication Orders Current Medication Orders: Discontinued Medications Ibuprofen (Motrin Tab) 600 mg PO STAT STA Stop: 01/09/18 10:05 Last Admin: 01/09/18 10:18 Dose: 600 mg MAR Pain/Vitals Document 01/09/18 10:18 GMD (Rec: 01/09/18 10:18 GMD [facility] [id number] Pain Reassessment Is This A Pain ReAssessment? No <Mannie Ty - Last Filed: 01/09/18 11:32> - PA / RF MANAGER / Resident Statement / has reviewed & agrees with the documentation as recorded. <Mannie Ty - Last Filed: 01/09/18 11:32> Disposition/Present on Arrival - Present on Arrival Any Indicators Present on Arrival: No History of DVT/PE: No History of Uncontrolled Diabetes: No Urinary Catheter: No History Surgical Site Infection Following: None - Disposition Have Diagnosis and Disposition been Completed?: Yes Disposition Time: 10:50 Patient Plan: Discharge <Maty Lozada - Last Filed: 01/09/18 10:39> <Mannie Ty - Last Filed: 01/09/18 11:32> - Disposition Diagnosis: Shoulder pain, Cervical pain Disposition: HOME/ ROUTINE Condition: STABLE Discharge Instructions (ExitCare): Neck Pain, Shoulder Pain (DC) Additional Instructions: Follow up with your Doctor/Ortho Return to emergency department for any new or worsening symptoms Prescriptions: Naproxen [Naprosyn] 500 mg PO BID #20 tab Referrals: Cesario Hein III, MD [Medical Doctor] - Follow up with primary Forms: [employer] (Divehi)
[2018-01-09 11:13] VITALS: BP 143/93; PULSE 90; O2SAT 99
--- NOTE | 2018-01-09 13:59 | RAD ---
Date of service: 01/09/2018 PROCEDURE: Radiographs of the Right Shoulder HISTORY: shoulder pain COMPARISON: No prior. FINDINGS: BONES: No evidence of acute displaced fracture nor dislocation JOINTS: Minor degenerative osteoarthritis right acromioclavicular joint SOFT TISSUES: Normal. OTHER FINDINGS: None. IMPRESSION: No no evidence of acute displaced fracture nor dislocation. Minor DJD right AC joint
--- NOTE | 2018-01-09 16:44 | RAD ---
Date of service: 01/09/2018 PROCEDURE: Cervical Spine Radiographs. HISTORY: Pain. COMPARISON: None available. FINDINGS: BONES: No acute displaced displaced or compression fracture. Slight anterior subluxation C6-C7 level. DISC SPACES: Mild multilevel degenerative spondylosis. Disc space heights are relatively maintained however there are anterior and smaller posterior osteophytes seen at several levels though most pronounced posteriorly at the C5-C6 and C6-C7 levels. SOFT TISSUES: Normal. No prevertebral soft tissue swelling. OTHER FINDINGS: None. IMPRESSION: No acute fractures. Mild multilevel degenerative spondylosis as described
--- NOTE | 2018-01-09 22:27 | CARD ---
APPROVED REPORT Date of service: 01/09/2018 EKG Measurement Heart [id number] <Conclusion> Normal sinus rhythm Normal ECG
== END 2018-01-09 11:15 | disposition home or self-care (01) ==
LOC: ED 09:54
DX: M54.2 Cervicalgia (principal); M25.511 Pain in right shoulder; I10 Essential (primary) hypertension; J45.909 Unspecified asthma, uncomplicated